=== PATIENT | female | born 1960 | race Caucasian/White ===

== ENCOUNTER → 2018-11-01 | Outpatient (CLI) | payer OTHER | LOC: LAB.O 10:38 | PROVIDERS: ATTEND Nurse Practitioner Family | DX: N19 Unspecified kidney failure (principal); I10 Essential (primary) hypertension ==

== ENCOUNTER → 2018-11-04 | Outpatient (CLI) | payer OTHER ==
--- NOTE | 2018-11-04 16:05 | US ---
EXAM DESCRIPTION: Carotid Duplex: ULTRASOUND. CLINICAL HISTORY: 58 years Female SLURRED SPEECH COMPARISON: None. TECHNIQUE: Transcutaneous scanning utilizing armstrong-scale and Doppler modes to evaluate the bilateral carotid systems and vertebral arteries. Percentage of diameter of stenosis or no stenosis recorded will be based upon NASCET criteria. FINDINGS: Peak systolic/end diastolic (CM-Sec) CCA Right 63/18 Left 83/17. ICA Right proximal 37/16, distal 64/23. Left proximal 47/19, Distal 62/25. Vertebral Right 43/18 Left 50/18. ECA (PS Only) Right 117 left 119. ICA/CCA peak systolic ratio: Right 1.0 Left 0.7 ICA/CCA end diastolic ratio: Right 1.3 Left 1.5 Vertebral arteries: antegrade flow. Comments: Fatty plaque in the bilateral CCA bulbs. IMPRESSION: 1. Doppler evaluation of the bilateral carotid systems and vertebral arteries shows no hemodynamically significant stenoses. 2. No significant amount of plaque seen in the carotid arteries bilaterally. Bilateral vertebral arteries showed antegrade-cephalad flow. Electronically signed by: Jovan Kc MD 11/04/2018 4:03 PM CDT
== END ==
LOC: US 08:00
PROVIDERS: ATTEND Nurse Practitioner Family
DX: R47.81 Slurred speech (principal)